=== PATIENT | male | born 1955 | race Caucasian/White ===

== ENCOUNTER 2019-01-05 09:38 | Emergency (ER) | payer MEDICARE, MEDICAID ==
[2019-01-05] MEDS ORDERED: Sodium Chloride 0.9% 1,000 ML ONE (10:09)
[2019-01-05] MEDS ORDERED: Aspirin Chewable 81 MG TAB ONE (10:09)
[2019-01-05 10:20] LABS: #Basophils 0.1 thou/uL (0.0-0.2); #Lymphocytes 1.4 thou/uL (1.20-3.40); #Monocytes 0.3 thou/uL (0.11-0.59); %Basophils 1.1 % (0.0-1.0); %Eosinophils 0.1 % (0.0-10.0); %Lymphocytes 29.2 % (21.0-51.0); %Monocytes 6.7 % (0.0-10.0); %Neutrophils 62.9 % (42.0-75.0); Hemoglobin 15.1 g/dL (14.0-18.0); Mean Corpuscular HGB CONC 33.7 g/dL (32.0-36.0); Mean Corpuscular Hemoglobin 30.6 pg (27.0-31.0); Mean Corpuscular Volume 90.6 fL (78.0-98.0); Mean Platelet Volume 10.8 fL (7.4-10.4); Platelet Count 95 thou/uL (130-400); RBC Distribution Width 12.6 % (11.5-14.5); Red Blood Cell (RBC) Count 4.93 mill/uL (4.70-6.10); White Blood Cell (WBC) Count 4.8 thou/uL (4.8-10.8)
[2019-01-05 10:28] LABS: ALT (SGPT) 48 U/L (8-55); AST (SGOT) 33 U/L (5-34); Albumin 3.9 g/dL (3.4-4.8); Alkaline Phosphatase 56 U/L (40-150); Anion Gap 13 mmol/L (10-20); BUN (Urea Nitrogen) 13 mg/dL (8.4-25.7); Bilirubin, Total 0.8 mg/dL (0.2-1.2); Calc. Creatinine Clearance 0 mL/min (70-130); Carbon Dioxide 23 mmol/L (23-31); Chloride 107 mmol/L (98-107); Estimated GFR-MDRD Greater than 90; Globulin 3.5 g/dL (2.4-3.5); Glucose 131 mg/dL (80-115); Potassium 3.2 mmol/L (3.5-5.1); Protein, Total 7.4 g/dL (5.8-8.1); Sodium 140 mmol/L (136-145)
--- NOTE | 2019-01-05 10:36 | CT ---
CT BRAIN WITHOUT CONTRAST: HISTORY: Dementia, bipolar, traumatic brain injury FINDINGS: No evidence of acute infarct, hemorrhage, midline shift or abnormal extra-axial fluid collections is seen. The ventricular size is appropriate and the basilar cisterns are patent. The bony calvarium is intact. The visualized paranasal sinuses and mastoid air cells are well aerated. No significant in terval change is seen since 03/14/2018. IMPRESSION: No CT evidence of acute intracranial process.
[2019-01-05 10:49] LABS: Bilirubin Negative (Negative); Blood, Urine Negative (Negative); Clarity Clear (Clear); Glucose, Urine (Dipstick) Negative (Negative); Leukocyte Negative (Negative); Nitrite Negative (Negative); Protein, Urine (Dipstick) Negative (Neg-Trace); Urobilinogen 0.2 mg/dL (Less than 2)
--- NOTE | 2019-01-05 10:57 | RAD ---
SINGLE VIEW CHEST: Date: 01/05/19 COMPARISON: 02/26/18. HISTORY: Chest pain and shortness of breath. FINDINGS: Single view of the chest shows normal sized cardiomediastinal silhouette with atherosclerotic calcifi cations in the aorta. There is no evidence of consolidation, mass, or pleural effusion. The previousl y seen air space opacities have resolved. IMPRESSION: No evidence of acute cardiopulmonary disease. POS: [facility]
[2019-01-05] MEDS ORDERED: Potassium Chloride 20 MEQ TAB ONE (11:04)
[2019-01-05] MEDS ORDERED: ALPRAZolam 0.5 MG TAB PO SCH (11:15)
[2019-01-05] MEDS ORDERED: ALPRAZolam 0.5 MG TAB ONE (11:15)
== END 2019-01-05 12:25 | disposition home or self-care (01) ==
LOC: NAV ERS 09:38
DX: I10 Essential (primary) hypertension (principal); F41.9 Anxiety disorder, unspecified; R53.1 Weakness; D50.9 Iron deficiency anemia, unspecified; I25.2 Old myocardial infarction; E78.5 Hyperlipidemia, unspecified; F03.90 Unspecified dementia, unspecified severity, without behavioral disturbance, psychotic disturbance, mood disturbance, and anxiety; Z86.73 Personal history of transient ischemic attack (TIA), and cerebral infarction without residual deficits; Z87.891 Personal history of nicotine dependence; Z79.82 Long term (current) use of aspirin; Z79.899 Other long term (current) drug therapy
CPT/HCPCS: 70450; 71045; 80053; 80178; 81003; 84484; 85025; 93005; 94760; 96360; J7050

== ENCOUNTER 2020-01-22 13:00 | Emergency (ER) | payer MEDICARE, OTHER ==
--- NOTE | 2020-01-22 13:34 | RAD ---
RADIOGRAPH CHEST 1 VIEW: DATE: 01/22/2020 HISTORY: 64-year-old male with chest pain FINDINGS: The thoracic aorta is tortuous and ectatic. There is no evidence of airspace density, pulmonary edema , cardiomegaly, or pneumothorax. The lateral costophrenic angles are not effaced. There is a dual-lead left subclavian transvenous permanent pacemaker. IMPRESSION: 1) No acute cardiopulmonary findings. 2) ectasia of thoracic aorta. 3) transvenous permanent pacemaker
[2020-01-22 13:45] LABS: ALT (SGPT) 53 U/L (8-55); AST (SGOT) 40 U/L (5-34); Albumin 4.1 g/dL (3.4-4.8); Alkaline Phosphatase 60 U/L (40-110); Anion Gap 12 mmol/L (10-20); BUN (Urea Nitrogen) 14 mg/dL (8.4-25.7); Bilirubin, Total 1.2 mg/dL (0.2-1.2); Calc. Creatinine Clearance 0 mL/min (70-130); Calcium 9.3 mg/dL (7.8-10.44); Carbon Dioxide 23 mmol/L (23-31); Chloride 105 mmol/L (98-107); Estimated GFR-MDRD Greater than 90; Globulin 3.8 g/dL (2.4-3.5); Glucose 107 mg/dL (80-115); Lipase 24 U/L (8-78); Potassium 3.4 mmol/L (3.5-5.1); Protein, Total 7.9 g/dL (5.8-8.1); Sodium 137 mmol/L (136-145)
[2020-01-22 13:52] LABS: #Basophils 0.1 thou/uL (0.0-0.2); #Lymphocytes 1.6 thou/uL (1.20-3.40); #Monocytes 0.5 thou/uL (0.11-0.59); #Neutrophils 3.4 thou/uL (1.40-6.50); %Basophils 1.1 % (0.0-1.0); %Eosinophils 0.3 % (0.0-10.0); %Neutrophils 60.6 % (42.0-75.0); Hemoglobin 15.2 g/dL (14.0-18.0); Mean Corpuscular Hemoglobin 30.4 pg (27.0-31.0); Mean Corpuscular Volume 94.8 fL (78.0-98.0); Mean Platelet Volume 12.7 fL (7.4-10.4); Platelet Count 118 thou/uL (130-400); RBC Distribution Width 13.3 % (11.5-14.5); Red Blood Cell (RBC) Count 5.01 mill/uL (4.70-6.10); White Blood Cell (WBC) Count 5.5 thou/uL (4.8-10.8)
[2020-01-22 16:02] LABS: Large Platelets SLIGHT; MDiff Complete? YES; Platelet Morphology Comment Appears Adequate; RBC Morphology Normal
== END 2020-01-22 14:58 ==
LOC: NAV ERS 13:00
DX: K29.00 Acute gastritis without bleeding (principal); R11.2 Nausea with vomiting, unspecified; I10 Essential (primary) hypertension; I25.10 Atherosclerotic heart disease of native coronary artery without angina pectoris; D50.9 Iron deficiency anemia, unspecified; E78.5 Hyperlipidemia, unspecified; I25.2 Old myocardial infarction; F31.9 Bipolar disorder, unspecified; Z86.73 Personal history of transient ischemic attack (TIA), and cerebral infarction without residual deficits; Z87.891 Personal history of nicotine dependence; Z79.82 Long term (current) use of aspirin; Z79.01 Long term (current) use of anticoagulants; Z79.899 Other long term (current) drug therapy
CPT/HCPCS: 71045; 80053; 83690; 84484; 85025; 93005

== ENCOUNTER 2020-06-26 09:08 | Emergency (ER) | payer MEDICARE, MEDICAID ==
[~2020-06-26 09:08] MED LIST: Iopamidol 370 76% 100 ML VIAL ONE
[2020-06-26 10:05] LABS: Bilirubin Moderate (Negative); Blood, Urine Trace (Negative); Clarity Clear (Clear); Glucose, Urine (Dipstick) Negative (Negative); Ketone, Urine Negative (Negative); Leukocyte Negative (Negative); Nitrite Negative (Negative); Protein, Urine (Dipstick) > or equal to 300 mg/dL (Neg-Trace); pH, Urine 5.5 (5.0-9.0)
[2020-06-26 10:06] LABS: ALT (SGPT) 35 U/L (8-55); AST (SGOT) 39 U/L (5-34); Albumin 3.9 g/dL (3.4-4.8); Alkaline Phosphatase 70 U/L (40-110); Anion Gap 17 mmol/L (10-20); BUN (Urea Nitrogen) 20 mg/dL (8.4-25.7); Bilirubin, Total 1.4 mg/dL (0.2-1.2); CK (CPK) 135 U/L (30-200); Calc. Creatinine Clearance 0 mL/min (70-130); Calcium 8.6 mg/dL (7.8-10.44); Carbon Dioxide 21 mmol/L (23-31); Chloride 108 mmol/L (98-107); Globulin 3.8 g/dL (2.4-3.5); Glucose 143 mg/dL (80-115); Potassium 3.6 mmol/L (3.5-5.1); Protein, Total 7.7 g/dL (5.8-8.1); Sodium 142 mmol/L (136-145)
[2020-06-26] MEDS ORDERED: Sodium Chloride 0.9% 1,000 ML ONE (10:14)
[2020-06-26 10:15] LABS: Specific Gravity, Urine 1.025 (1.002-1.036)
[2020-06-26 10:16] LABS: Bacteria/HPF Rare-Few HPF (None Seen); Mucous/LPF 3+ LPF (<2+); RBC/HPF 0-3 HPF (0-3); Squamous Epithelial 0-3 HPF (0-3)
[2020-06-26 10:17] LABS: Amphetamine Not Detected (NotDetected); Barbiturates Screen Not Detected (NotDetected); Benzodiazepine Screen Not Detected (NotDetected); Cocaine Metabolite Screen Not Detected (NotDetected); Medtox Control Line Valid? VALID (VALID); Methadone Not Detected (NotDetected); Methamphetamine Not Detected (NotDetected); Opiate Screen Not Detected (NotDetected); Oxycodone Screen Not Detected (NotDetected); Phencyclidine (PCP) Not Detected (NotDetected); THC/Cannabinoid Screen Not Detected (NotDetected); Tricyclic Screen Detected (NotDetected)
[2020-06-26 10:18] LABS: #Basophils 0.1 thou/uL (0.0-0.2); #Eosinphils 0.1 thou/uL (0.0-0.7); #Monocytes 0.3 thou/uL (0.11-0.59); #Neutrophils 2.9 thou/uL (1.40-6.50); %Basophils 1.4 % (0.0-1.0); %Eosinophils 1.6 % (0.0-10.0); %Lymphocytes 23.5 % (21.0-51.0); %Monocytes 7.9 % (0.0-10.0); %Neutrophils 65.5 % (42.0-75.0); Hemoglobin 14.6 g/dL (14.0-18.0); Mean Corpuscular HGB CONC 32.4 g/dL (32.0-36.0); Mean Corpuscular Hemoglobin 30.9 pg (27.0-31.0); Mean Corpuscular Volume 95.5 fL (78.0-98.0); Mean Platelet Volume 11.3 fL (7.4-10.4); Platelet Count 109 thou/uL (130-400); RBC Distribution Width 13.9 % (11.5-14.5); Red Blood Cell (RBC) Count 4.73 mill/uL (4.70-6.10); White Blood Cell (WBC) Count 4.4 thou/uL (4.8-10.8)
[2020-06-26 10:20] LABS: Platelet Morphology Comment Appears Decreased
[2020-06-26 10:24] LABS: CKMB 4.4 ng/mL (0-6.6)
--- NOTE | 2020-06-26 10:39 | RAD ---
PORTABLE CHEST: HISTORY: Syncope, altered mental status. COMPARISON: 01/22/2020 exam. FINDINGS: Heart size is enlarged. A pacemaker is present. Heart size appears more prominent than on the prior examination, but this could be differences in portable technique. No infiltrative lung process or s igns of failure. IMPRESSION: Cardiomegaly. POS: [facility]
--- NOTE | 2020-06-26 11:09 | CT ---
Exam: Head CT without contrast HISTORY: Altered mental status. COMPARISON: none FINDINGS: Hemorrhage: No intraparenchymal hemorrhage or extra-axial hematoma. Brain parenchyma: Cortical pereira-white matter differentiation is preserved. No mass effect or midline shift. Basilar cisterns are patent.Minimal chronic small vessel ischemic changes of the white matter Ventricular system: Ventricles and sulci are patent and symmetric. Calvarium: Intact. Sinuses and mastoid air cells: Adequate aeration. IMPRESSION: No acute intracranial process.
--- NOTE | 2020-06-26 11:25 | CT ---
Exam: CT angiogram of the chest HISTORY: Altered mental status. Evaluate for pulmonary embolism. Syncope COMPARISON: None TECHNIQUE: CT angiogram of the chest is performed in the axial plane. Three-dimensional reformatted i mages are submitted for interpretation FINDINGS: Mediastinum: No mass, lymphadenopathy or hematoma. HEART: Normal size. No significant pericardial fluid. There are coronary calcifications. Aorta: Atherosclerosis. No periaortic fat stranding. Upper solid abdominal viscera: Cirrhotic changes of the liver. There does appear to be evidence of ga stroesophageal varices, incompletely evaluated. There is evidence of small amount of perihepatic and perisplenic fluid. Trachea and central bronchi: Patent Pleural spaces: Small bilateral pleural effusions. Lung parenchyma: Dependent atelectatic changes/atelectatic changes adjacent to the pleural fluid. Pneumothorax: None Osseous structures: No lytic or blastic lesions Pulmonary arteries: Adequate contrast opacification pulmonary arterial system to the level of segment al arteries. No filling defect to suggest pulmonary embolism IMPRESSION: 1. No evidence of pulmonary artery embolism to the level of the segmental arteries 2. Small bilateral effusions with adjacent consolidation due to atelectasis. 3. Cirrhosis of the liver, incompletely evaluated. There do appear to be gastroesophageal varices.
[2020-06-26] MEDS ORDERED: Aspirin Chewable 81 MG TAB ONE (11:43)
[2020-06-26 12:34] LABS: SARS-CoV-2 NAA Rapid Test Not Detected (NotDetected)
== END 2020-06-26 12:18 | disposition short-term general hospital (02) ==
LOC: NAV ERS 09:08
DX: E86.0 Dehydration (principal); K74.60 Unspecified cirrhosis of liver; J90 Pleural effusion, not elsewhere classified; R77.8 Other specified abnormalities of plasma proteins; I25.10 Atherosclerotic heart disease of native coronary artery without angina pectoris; I10 Essential (primary) hypertension; E78.5 Hyperlipidemia, unspecified; I25.2 Old myocardial infarction; Z87.891 Personal history of nicotine dependence; Z86.73 Personal history of transient ischemic attack (TIA), and cerebral infarction without residual deficits; Z79.899 Other long term (current) drug therapy; Z79.82 Long term (current) use of aspirin
CPT/HCPCS: 0240U; 70450; 71045; 71275; 80053; 80178; 80306; 81003; 81015; 82140; 82550; 82553; 83605; 84443; 84484; 85025; 85379; 93005; 94760; J7050; Q9967

== ENCOUNTER 2020-12-22 16:46 | Emergency (ER) | payer MEDICARE, MEDICAID ==
[2020-12-22 17:38] LABS: #Basophils 0.1 thou/uL (0.0-0.2); #Eosinphils 0.4 thou/uL (0.0-0.7); #Lymphocytes 1.4 thou/uL (1.20-3.40); #Monocytes 0.6 thou/uL (0.11-0.59); #Neutrophils 4.3 thou/uL (1.40-6.50); %Basophils 1.5 % (0.0-1.0); %Lymphocytes 20.9 % (21.0-51.0); %Monocytes 9.1 % (0.0-10.0); %Neutrophils 62.5 % (42.0-75.0); Hemoglobin 14.2 g/dL (14.0-18.0); Mean Corpuscular HGB CONC 32.2 g/dL (32.0-36.0); Mean Corpuscular Hemoglobin 30.5 pg (27.0-31.0); Mean Corpuscular Volume 94.8 fL (78.0-98.0); Mean Platelet Volume 9.1 fL (7.4-10.4); Platelet Count 178 thou/uL (130-400); RBC Distribution Width 12.3 % (11.5-14.5); Red Blood Cell (RBC) Count 4.65 mill/uL (4.70-6.10); White Blood Cell (WBC) Count 6.9 thou/uL (4.8-10.8)
[2020-12-22 17:48] LABS: ALT (SGPT) 25 U/L (8-55); AST (SGOT) 25 U/L (5-34); Albumin 3.7 g/dL (3.4-4.8); Alkaline Phosphatase 76 U/L (40-110); Anion Gap 12 mmol/L (10-20); BUN (Urea Nitrogen) 20 mg/dL (8.4-25.7); Bilirubin, Total 0.5 mg/dL (0.2-1.2); Calc. Creatinine Clearance 0 mL/min (70-130); Calcium 9.1 mg/dL (7.8-10.44); Carbon Dioxide 21 mmol/L (23-31); Chloride 106 mmol/L (98-107); Globulin 4.5 g/dL (2.4-3.5); Glucose 110 mg/dL (80-115); Potassium 4.2 mmol/L (3.5-5.1); Protein, Total 8.2 g/dL (5.8-8.1); Sodium 135 mmol/L (136-145); Uric Acid 7.4 mg/dL (3.5-7.2)
[2020-12-22] MEDS ORDERED: Colchicine 0.6 MG TAB PO SCH (18:15)
== END 2020-12-22 21:11 ==
LOC: NAV ERS 16:46
DX: M10.9 Gout, unspecified (principal); I25.10 Atherosclerotic heart disease of native coronary artery without angina pectoris; I10 Essential (primary) hypertension; E78.5 Hyperlipidemia, unspecified; I25.2 Old myocardial infarction; Z87.891 Personal history of nicotine dependence; Z79.899 Other long term (current) drug therapy; Z79.82 Long term (current) use of aspirin
CPT/HCPCS: 36415; 80053; 80178; 84550; 85025

== ENCOUNTER 2022-05-10 15:30 | Emergency (ER) | payer MEDICARE, MEDICAID ==
[2022-05-10 16:10] LABS: #Basophils 0.1 thou/uL (0.0-0.2); #Lymphocytes 1.6 thou/uL (1.20-3.40); #Monocytes 0.5 thou/uL (0.11-0.59); #Neutrophils 3.1 thou/uL (1.40-6.50); %Basophils 1.1 % (0.0-1.0); %Eosinophils 0.7 % (0.0-10.0); %Monocytes 9.8 % (0.0-10.0); %Neutrophils 58.5 % (42.0-75.0); Hemoglobin 14.8 g/dL (14.0-18.0); Mean Corpuscular HGB CONC 32.6 g/dL (32.0-36.0); Mean Corpuscular Hemoglobin 30.5 pg (27.0-31.0); Mean Corpuscular Volume 93.6 fl (78.0-98.0); Mean Platelet Volume 10.2 fL (7.4-10.4); Platelet Count 103 10x3/uL (130-400); RBC Distribution Width 13.8 % (11.5-14.5); Red Blood Cell (RBC) Count 4.84 mill/uL (4.70-6.10); White Blood Cell (WBC) Count 5.3 10x3/uL (4.8-10.8)
[2022-05-10 16:16] LABS: Platelet Morphology Comment Appears Decreased
[2022-05-10 16:17] LABS: Elliptocytes SLIGHT = 2-5 cells (100X) (0-1/hpf)
[2022-05-10 16:20] LABS: MDiff Complete? YES
[2022-05-10 16:28] LABS: ALT (SGPT) 42 U/L (8-55); AST (SGOT) 64 U/L (5-34); Albumin 3.7 g/dL (3.4-4.8); Alkaline Phosphatase 57 U/L (40-110); Anion Gap 16 mmol/L (10-20); BUN (Urea Nitrogen) 28 mg/dL (8.4-25.7); Bilirubin, Total 0.5 mg/dL (0.2-1.2); CK (CPK) 1302 U/L (30-200); Calc. Creatinine Clearance 0 mL/min (70-130); Carbon Dioxide 24 mmol/L (23-31); Chloride 113 mmol/L (98-107); Estimated GFR 94; Globulin 3.3 g/dL (2.4-3.5); Glucose 128 mg/dL (80-115); Sodium 149 mmol/L (136-145)
[2022-05-10 16:42] LABS: Bilirubin Negative (Negative); Blood, Urine Negative (Negative); Clarity Clear (Clear); Glucose, Urine (Dipstick) Negative (Negative); Ketone, Urine Trace mg/dL (Negative); Leukocyte Negative (Negative); Nitrite Negative (Negative); Protein, Urine (Dipstick) 30 mg/dL (Neg-Trace); Urobilinogen 0.2 mg/dL (Less than 2); pH, Urine 5.5 (5.0-9.0)
[2022-05-10] MEDS ORDERED: Sodium Chloride 0.9% 1,000 ML ONE (16:42)
[2022-05-10 16:46] LABS: Specific Gravity, Urine 1.032 (1.002-1.036)
[2022-05-10 16:50] LABS: Amphetamine Not Detected (NotDetected); Barbiturates Screen Not Detected (NotDetected); Benzodiazepine Screen Not Detected (NotDetected); Cocaine Metabolite Screen Not Detected (NotDetected); Medtox Control Line Valid? VALID (VALID); Methadone Not Detected (NotDetected); Methamphetamine Not Detected (NotDetected); Opiate Screen Not Detected (NotDetected); Oxycodone Screen Not Detected (NotDetected); Phencyclidine (PCP) Not Detected (NotDetected); THC/Cannabinoid Screen Not Detected (NotDetected); Tricyclic Screen Not Detected (NotDetected)
[2022-05-10 16:54] LABS: Bacteria/HPF None Seen HPF (None Seen); RBC/HPF 0-3 HPF (0-3); Squamous Epithelial 0-3 HPF (0-3); WBC/HPF 0-3 HPF (0-3)
[2022-05-10] MEDS ORDERED: Aspirin Chewable 81 MG TAB ONE (17:09)
[2022-05-10 17:19] LABS: SARS-CoV-2 NAA Rapid Test Not Detected (NotDetected)
[2022-05-10] MEDS ORDERED: Aspirin 300 MG Suppository ONE (17:26)
[2022-05-10] MEDS ORDERED: KETAMINE 100 MG/ML (5ML VIAL) ONE (17:36)
[2022-05-10 19:12] LABS: Lactic Acid 1.8 mmol/L (0.5-2.2)
== END 2022-05-10 19:14 | disposition home or self-care (01) ==
LOC: NAV ERS 15:30
DX: E87.0 Hyperosmolality and hypernatremia (principal); M62.82 Rhabdomyolysis; E86.0 Dehydration; R79.89 Other specified abnormal findings of blood chemistry; I10 Essential (primary) hypertension; I25.10 Atherosclerotic heart disease of native coronary artery without angina pectoris; Z79.82 Long term (current) use of aspirin; Z79.899 Other long term (current) drug therapy; Z20.822 Contact with and (suspected) exposure to COVID-19; Z87.891 Personal history of nicotine dependence
CPT/HCPCS: 51701; 70450; 71045; 80306; 82550; 82553; 83605; 84484; 87804 ×2; 93005; 96361; 96374; 99285; U0002; 80053; 81003; 81015; 84443; 85025; J7050

== ENCOUNTER 2023-02-18 18:34 | Emergency (ER) | payer MEDICARE, OTHER ==
[2023-02-18] MEDS ORDERED: Lidocaine 1% (PF) 30 ML VIAL ONE (19:01)
[2023-02-18 19:53] LABS: #Basophils 0.1 thou/uL (0.0-0.2); #Lymphocytes 1.6 thou/uL (1.20-3.40); #Monocytes 0.4 thou/uL (0.11-0.59); #Neutrophils 1.3 thou/uL (1.40-6.50); %Basophils 1.6 % (0.0-1.0); %Eosinophils 0.5 % (0.0-10.0); %Neutrophils 38.9 % (42.0-75.0); Hematocrit 42.2 % (42.0-52.0); Hemoglobin 14.2 g/dL (14.0-18.0); Mean Corpuscular HGB CONC 33.6 g/dL (32.0-36.0); Mean Corpuscular Hemoglobin 32.1 pg (27.0-31.0); Mean Corpuscular Volume 95.7 fl (78.0-98.0); Mean Platelet Volume 11.3 fL (7.4-10.4); Platelet Count 87 10x3/uL (130-400); RBC Distribution Width 12.6 % (11.5-14.5); Red Blood Cell (RBC) Count 4.41 mill/uL (4.70-6.10); White Blood Cell (WBC) Count 3.3 10x3/uL (4.8-10.8)
[2023-02-18 19:58] LABS: Elliptocytes SLIGHT = 2-5 cells (100X) (0-1/hpf)
[2023-02-18 19:59] LABS: Burr Cells SLIGHT = 2-5 cells (100X) (0-1/hpf); Toxic Granulation SLIGHT
[2023-02-18 20:01] LABS: Large Platelets SLIGHT (None Seen); Platelet Adequacy Comment Appears Decreased; Vacuoles SLIGHT
[2023-02-18 20:04] LABS: Anion Gap 10 mmol/L (10-20); BUN (Urea Nitrogen) 13 mg/dL (8.4-25.7); Calc. Creatinine Clearance 0 mL/min (70-130); Calcium 8.8 mg/dL (7.8-10.44); Carbon Dioxide 25 mmol/L (23-31); Chloride 106 mmol/L (98-107); Estimated GFR 99; Glucose 86 mg/dL (80-115); Sodium 137 mmol/L (136-145)
[2023-02-18] MEDS ORDERED: Bacitracin 1 PK ONE (21:06)
== END 2023-02-18 21:30 | disposition home or self-care (01) ==
LOC: NAV ERS 18:34 → EDBD 18:34 → NAV ERS 21:30
DX: S01.511A Laceration without foreign body of lip, initial encounter (principal); I95.9 Hypotension, unspecified; I10 Essential (primary) hypertension; I25.10 Atherosclerotic heart disease of native coronary artery without angina pectoris; D50.9 Iron deficiency anemia, unspecified; I25.2 Old myocardial infarction; E78.5 Hyperlipidemia, unspecified; G30.9 Alzheimer's disease, unspecified; F02.80 Dementia in other diseases classified elsewhere, unspecified severity, without behavioral disturbance, psychotic disturbance, mood disturbance, and anxiety; Y04.2XXA Assault by strike against or bumped into by another person, initial encounter; Z86.73 Personal history of transient ischemic attack (TIA), and cerebral infarction without residual deficits; Z87.891 Personal history of nicotine dependence; Z79.82 Long term (current) use of aspirin; Z79.899 Other long term (current) drug therapy
CPT/HCPCS: 12011; 36415; 80048; 83605; 85025; J2001

== ENCOUNTER 2023-08-29 21:52 | Emergency (ER) | payer MEDICARE, MEDICAID, OTHER ==
[2023-08-29] MEDS ORDERED: Boostrix 0.5 ML (Tdap) VIAL (>/=7 yrs of age) ONE (22:45)
[2023-08-29] MEDS ORDERED: Bacitracin 1 PK ONE (22:45)
== END 2023-08-29 23:15 ==
LOC: NAV ERS 21:52
DX: S51.812A Laceration without foreign body of left forearm, initial encounter (principal); S51.811A Laceration without foreign body of right forearm, initial encounter; I25.10 Atherosclerotic heart disease of native coronary artery without angina pectoris; E78.5 Hyperlipidemia, unspecified; I10 Essential (primary) hypertension; Z87.891 Personal history of nicotine dependence; G40.909 Epilepsy, unspecified, not intractable, without status epilepticus; Z79.899 Other long term (current) drug therapy; W18.30XA Fall on same level, unspecified, initial encounter
CPT/HCPCS: 70450; 72125; 90471; 90715